=== PATIENT | female | born 1995 | race Caucasian/White ===

== ENCOUNTER 2023-06-25 03:07 | Emergency (ER) | payer MEDICAID ==
[2023-06-25 04:45] LABS: BLOOD UREA NITROGEN,BUN 3 mg/dL (7-18); BUN/CREATININE RATIO 4.3 (9-20); CALCIUM 8.9 mg/dL (8.6-10.2); CARBON DIOXIDE,CO2 24 mmol/L (21-32); CHLORIDE,CL 104 mmol/L (100-110); CREATININE 0.7 mg/dL (0.55-1.02); EST CRCL DRUG DOSING (CG) 119.62 mL/min; ESTIMATED GFR 120 mL/min (>60); GLUCOSE RANDOM 113 mg/dL (80-116); SODIUM,NA 140 mmol/L (135-145)
[2023-06-25 04:50] LABS: A/G RATIO 1.6; ALANINE AMINOTRANSFERASE,ALT 33 U/L (12-36); ALBUMIN 4.2 g/dL (3.5-5.2); ALKALINE PHOSPHATASE 88 IU/L (56-112); ASPARTATE AMNIOTRANSFERASE,AST 22 IU/L (5-25); BILIRUBIN TOTAL 0.4 mg/dL (0.1-1.3); PROTEIN TOTAL,TP 6.9 g/dL (6.0-8.0); SALICYLATE 3.3 mg/dL (<2.8)
[2023-06-25 04:51] LABS: ACETAMINOPHEN < 2 ug/mL (<2)
[2023-06-25] MEDS ORDERED: Potassium Chloride 20 MEQ Tab.ER PO ONE (05:39)
[2023-06-25 06:07] LABS: AMPHETAMINES SCREEN, URINE POSITIVE (NEGATIVE); BARBITURATE SCREEN,URINE NEGATIVE (NEGATIVE); BENZODIAZEPINES SCREEN,URINE POSITIVE (NEGATIVE); METHADONE SCREEN, URINE NEGATIVE (NEGATIVE); METHAMPHETAMINE SCREEN, URINE NEGATIVE (NEGATIVE); OXYCODONE SCREEN,URINE NEGATIVE (NEGATIVE); PROPOXYPHENE SCREEN,URINE NEGATIVE (NEGATIVE); THC SCREEN,URINE NEGATIVE (NEGATIVE)
[2023-06-25 06:08] LABS: BUPRENORPHINE SCREEN,URINE NEGATIVE (NEGATIVE)
[2023-06-25] MEDS ORDERED: Ziprasidone HCl 20 MG Cap PO STA (09:54)
[2023-06-25] MEDS ORDERED: Topiramate 50 MG Tab PO STA (09:54)
[2023-06-25] MEDS ORDERED: Venlafaxine 37.5 MG Cap.ER PO ONE (09:54)
[2023-06-25] MEDS ORDERED: Diazepam 5 MG Tab PO ONE (09:57)
[2023-06-25] MEDS ORDERED: hydrOXYzine HCl 50 MG/ML SDV IM ONE ×2 (10:08→17:11)
[2023-06-25] MEDS ORDERED: Ondansetron 8 MG Tab.DIS PO ONE (10:08)
[2023-06-25] MEDS ORDERED: Venlafaxine 75 MG Cap.ER PO ONE (10:15)
== END 2023-06-25 17:34 | disposition home or self-care (01) ==
LOC: FB.ED 03:07
DX: F41.1 Generalized anxiety disorder (principal); F32.A Depression, unspecified; F43.10 Post-traumatic stress disorder, unspecified; Z20.822 Contact with and (suspected) exposure to COVID-19; Z88.8 Allergy status to other drugs, medicaments and biological substances
CPT/HCPCS: 36415; 80053; 80143; 80179; 80307; 81025; 87635; 96372; 99283; A9270; J3360; J3410; U0002